=== PATIENT | female | born 1940 | race Caucasian/White ===

== ENCOUNTER 2017-11-24 19:57 | Observation (INO) | payer MEDICARE, BC ==
[2017-11-24] MEDS ORDERED: Sodium Chloride 0.9% 5 ML Syringe FLUSH PRN ×2 (20:05→21:24)
[2017-11-24] MEDS ORDERED: Nitroglycerin 2% Oint 1 GM UD Packet TOP ONE (20:06)
--- NOTE | 2017-11-24 20:19 | EDM.PDOC ---
ED HPI GENERAL MEDICAL PROBLEM - General Chief Complaint: Chest Pain Stated Complaint: CHEST PAIN Time Seen by Provider: 11/24/17 20:05 Source of Information: Reports: Patient History Limitations: Reports: No Limitations - History of Present Illness INITIAL COMMENTS - FREE TEXT/NARRATIVE: 77 YO WF presents to ER by EMS with conplaints of near syncope. Pt reports she was eating dinner and after she finished she began to feel nauseated with intestinal cramping, diaphoresis, and dizziness. Pt reports she had a similar event 4 years ago and had stents placed in her heart. Pt reports no chest pain during this episode but did have some mild left shoulder discomfort. Pt reports symptoms inproved after nitro and oxygen by EMS. Onset: Today Onset Date: 11/24/17 Onset Time: 18:00 Duration: Hour(s): (2) Location: Reports: Chest, Abdomen Quality: Reports: Ache Severity: Moderate Improves with: Reports: None Worsens with: Reports: Eating Associated Symptoms: Reports: Chest Pain, Diaphoresis, Nausea/Vomiting. Denies : Shortness of Breath Treatments STATION EXAMINER: Reports: Nitroglycerin Left Chest Pain Score (Numeric/FACES): 3 - Related Data Allergies Allergy/AdvReac Type Severity Reaction Status Date / Time amlodipine Allergy Hives Verified 11/24/17 20:55 aspirin Allergy Bleeding Verified 11/24/17 20:55 atorvastatin Allergy Muscle Verified 11/24/17 20:55 Aches fexofenadine [From Marija] Allergy Hives Verified 11/24/17 20:55 latex Allergy Hives Verified 11/24/17 20:55 phenobarbital Allergy Hives Verified 11/24/17 20:55 povidone-iodine Allergy Hives Verified 11/24/17 20:55 [From Betadine] rosuvastatin Allergy Rash Verified 11/24/17 20:55 soap [From Betadine] Allergy Hives Verified 11/24/17 20:55 valsartan [From Diovan] Allergy Hives Verified 11/24/17 20:55 venlafaxine [From Effexor] Allergy Rash Verified 11/24/17 20:55 Home Meds: Home Meds Bisacodyl [Dulcolax] 5 mg PO ASDIRECTED PRN 11/24/17 [History] Furosemide [Lasix] 20 mg PO DAILY 11/24/17 [History] Hydrochlorothiazide 25 mg PO DAILY 11/24/17 [History] Isosorbide Mononitrate [Imdur] 30 mg PO DAILY 11/24/17 [History] Losartan [Cozaar] 100 mg PO DAILY 11/24/17 [History] Nitroglycerin [Nitrostat] 1 tab SL ASDIRECTED PRN 11/24/17 [History] Pravastatin Sodium [Pravachol] 10 mg PO DAILY 11/24/17 [History] Psyllium Husk [Metamucil] 1 tbsp PO DAILY PRN 11/24/17 [History] Sertraline [Zoloft] 50 mg PO DAILY 11/24/17 [History] ED ROS GENERAL - Review of Systems Review Of Systems: See Below Constitutional: Reports: No Symptoms HEENT: Reports: No Symptoms Respiratory: Reports: No Symptoms Cardiovascular: Reports: Chest Pain, Lightheadedness Endocrine: Reports: No Symptoms GI/Abdominal: Reports: Nausea : Reports: No Symptoms Musculoskeletal: Reports: No Symptoms Skin: Reports: No Symptoms Neurological: Reports: No Symptoms Psychiatric: Reports: No Symptoms Hematologic/Lymphatic: Reports: No Symptoms Immunologic: Reports: No Symptoms ED EXAM, GENERAL - Physical Exam Exam: See Below Exam Limited By: No Limitations General Appearance: Alert, WD/WN, No Apparent Distress Ears: Normal External Exam, Normal Canal, Hearing Grossly Normal, Normal TMs Head: Atraumatic, Normocephalic Neck: Normal Inspection, Supple, Non-Tender, Full Range of Motion Respiratory/Chest: No Respiratory Distress, Lungs Clear, Normal Breath Sounds, No Accessory Muscle Use, Chest Non-Tender Cardiovascular: Normal Peripheral Pulses, Regular Rate, Rhythm, No Edema, No Gallop, No JVD, No Murmur, No Rub GI/Abdominal: Normal Bowel Sounds, Soft, Non-Tender, No Organomegaly, No Distention, No Abnormal Bruit, No Mass Back Exam: Normal Inspection, Full Range of Motion, NT Extremities: Normal Inspection, Normal Range of Motion, Non-Tender, Normal Capillary Refill, No Pedal Edema Neurological: Alert, Oriented, CN II-XII Intact, Normal Cognition, Normal Gait, Normal Reflexes, No Motor/Sensory Deficits Psychiatric: Normal Affect, Normal Mood Skin Exam: Warm, Dry, Intact, Normal Color, No Rash Lymphatic: No Adenopathy EKG INTERPRETATION EKG Date: 04/25/18 Time: 20:08 Rhythm: NSR Rate (Beats/Min): 100 [place]: Normal P-Wave: Present QRS: Normal ST-T: Normal QT: Normal Comparison: NA - No Prior EKG Course - Vital Signs Last Recorded V/S: Last Vital Signs Temp 36.8 C 11/24/17 20:13 Pulse 97 11/24/17 20:13 Resp 18 11/24/17 20:13 BP 170/74 H 11/24/17 20:13 Pulse Ox 86 L 11/24/17 20:13 - Orders/Labs/Meds Orders: Active Orders 24 hr Category Date Time Status EKG Documentation Completion [RC] ASDIRECTED Care 11/24/17 20:05 Active Peripheral IV Care [RC] . DIRECTED Care 11/24/17 20:05 Active Chest 1V Frontal [CR] Stat Exams 11/24/17 20:05 Ordered Sodium Chloride 0.9% [Syrex Flush] Med 11/24/17 20:05 Active 5 ml FLUSH Q8HR PRN Peripheral IV Insertion Adult [OM.PC] Routine Oth 11/24/17 20:05 Ordered EKG 12 Lead [EK] Routine Ther 11/24/17 20:05 Ordered Medication Orders Sodium Chloride (Syrex Flush) 5 ml FLUSH Q8HR PRN PRN Reason: Keep Vein Open Labs: Laboratory Tests 11/24/17 11/24/17 11/24/17 Range/Units 19:45 19:45 19:45 WBC 7.8 (5.0-10.0) 10^3/uL RBC 5.00 (3.80-5.50) 10^6/uL Hgb 14.9 (12.0-16.0) g/dL Hct 44.1 (37.0-47.0) % MCV 88.3 (82.0-92.0) fL MCH 29.8 (27.0-31.0) pg MCHC 33.8 (32.0-36.0) g/dL RDW 12.4 (11.5-14.5) % Plt Count 180 (150-300) 10^3/uL MPV 8.6 (7.4-10.4) fL Neut % (Auto) 64.9 (50.0-70.0) % Lymph % (Auto) 21.7 (20.0-40.0) % [place] % (Auto) 9.4 H (2.0-8.0) % Eos % (Auto) 3.3 H (1.0-3.0) % Baso % (Auto) 0.7 (0.0-1.0) % Neut # (Auto) 5.0 (2.5-7.0) 10^3/uL Lymph # (Auto) 1.7 (1.0-4.0) 10^3/uL [place] # (Auto) 0.7 (0.1-0.8) 10^3/uL Eos # (Auto) 0.3 (0.1-0.3) 10^3/uL Baso # (Auto) 0.1 (0.0-0.1) 10^3/uL PT 10.0 (8.9-11.4) SEC INR 1.0 (0.9-1.1) APTT 24.3 (20.8-31.2) SEC Sodium 140 (136-145) mmol/L Potassium 2.9 L (3.3-5.3) mmol/L Chloride 101 (98-115) mmol/L Carbon Dioxide 24.2 (21.0-32.0) mmol/L BUN 35 H (6-25) mg/dL Creatinine 1.17 (0.51-1.17) mg/dL Est Cr Clr Drug Dosing 33.67 mL/min Estimated GFR (MDRD) 45 mL/min Glucose 130 H (70-110) mg/dL Calcium 9.2 (8.7-10.3) mg/dL Total Bilirubin 0.7 (0.2-1.0) mg/dL AST 25 (15-37) U/L ALT 25 (12-78) U/L Alkaline Phosphatase 49 (46-116) IU/L Creatine Kinase 91 (26-276) U/L CK-MB (CK-2) 0.50 (0.00-4.30) ng/mL Troponin I < 0.04 (0.00-0.070) ng/mL Total Protein 8.4 H (6.4-8.2) g/dL Albumin 4.19 (3.00-4.80) g/dL Meds: Medications Generic Name Dose Route Start Last Admin Trade Name Freq PRN Reason Stop Dose Admin Sodium Chloride 5 ml 04/25/18 20:05 Syrex Flush FLUSH Q8HR PRN Keep Vein Open Discontinued Medications Generic Name Dose Route Start Last Admin Trade Name Libia PRN Reason Stop Dose Admin Nitroglycerin 1 gm 11/24/17 20:06 11/24/17 20:20 Nitro-Bid 2% TOP 11/24/17 20:07 1 gm ONETIME ONE Administration - Radiology Interpretation Free Text/Narrative:: CXR- NAD Departure - Departure Time of Disposition: 21:18 Disposition: Refer to Observation Condition: Fair Clinical Impression: Near syncope, Hypokalemia Chest pain Qualifiers: Chest pain type: unspecified Qualified Code(s): R07.9 - Chest pain, unspecified Forms: ED Department Discharge - My Orders Last 24 Hours: My Active Orders 11/24/17 20:05 EKG Documentation Completion [RC] ASDIRECTED Peripheral IV Care [RC] . DIRECTED Chest 1V Frontal [CR] Stat Sodium Chloride 0.9% [Syrex Flush] 5 ml FLUSH Q8HR PRN Peripheral IV Insertion Adult [OM.PC] Routine EKG 12 Lead [EK] Routine - Assessment/Plan Last 24 Hours: My Active Orders 11/24/17 20:05 EKG Documentation Completion [RC] ASDIRECTED Peripheral IV Care [RC] . DIRECTED Chest 1V Frontal [CR] Stat Sodium Chloride 0.9% [Syrex Flush] 5 ml FLUSH Q8HR PRN Peripheral IV Insertion Adult [OM.PC] Routine EKG 12 Lead [EK] Routine Assessment:: 1. near syncope 2. anginal equivalent chest pain 3. hypokalemia Plan: 1. admit for 23 hour obs- Hardik Mcgraw 2. nitro 0.4 paste Q6 3. repeat trop I 4. replace potassium
[2017-11-24 20:40] LABS: CHLORIDE,CL 101 mmol/L (98-115); SODIUM,NA 140 mmol/L (136-145)
[2017-11-24] MEDS ORDERED: Morphine 2 MG/ML Syringe IVPUSH PRN (21:24)
[2017-11-24] MEDS ORDERED: Potassium Chloride 20 MEQ Tab.ER PO ONE (21:28)
[2017-11-25] MEDS: Nitroglycerin 2% Oint 1 GM UD Packet TOP SCH ×3 (00:38→11:46)
[2017-11-25 07:46] LABS: CHLORIDE,CL 105 mmol/L (98-115); SODIUM,NA 149 mmol/L (136-145)
--- NOTE | 2017-11-25 09:41 | PCM.HP ---
H&P History of Present Illness - General Date of Service: 11/25/17 Admit Problem/Dx: Admission Diagnosis/Problem Admission Diagnosis/Problem Near syncope - History of Present Illness Initial Comments - Free Text/Narative: 77-year-old elderly female who was in her normal state of health when she presented to the ED due to lightheadedness and feeling she was given a pass out however no classic chest pain but did admit to left shoulder pain. Patient stated she was at local [facility] visiting friend ate a meal and then started having chest pain with some significant nausea cramping diaphoresis. Stated she had diaphoresis 2 nights prior to this also. She does have a history of stents placed 4 years ago with a myocardial infarction 2000. Was given nitroglycerin and oxygen, enroute to ED with significant improvement. History of bleeding with aspirin. Left Chest Pain Score (Numeric/FACES): 3 - Related Data Allergies/Adverse Reactions: Allergies Allergy/AdvReac Type Severity Reaction Status Date / Time amlodipine Allergy Hives Verified 11/25/17 00:39 aspirin Allergy Bleeding Verified 11/25/17 00:39 atorvastatin Allergy Muscle Verified 11/25/17 00:39 Aches fexofenadine [From Marija] Allergy Hives Verified 11/25/17 00:39 latex Allergy Hives Verified 11/25/17 00:39 phenobarbital Allergy Hives Verified 11/25/17 00:39 povidone-iodine Allergy Hives Verified 11/25/17 00:39 [From Betadine] rosuvastatin Allergy Rash Verified 11/25/17 00:39 soap [From Betadine] Allergy Hives Verified 11/25/17 00:39 valsartan [From Diovan] Allergy Hives Verified 11/25/17 00:39 venlafaxine [From Effexor] Allergy Rash Verified 11/25/17 00:39 Home Medications: Home Meds Bisacodyl [Dulcolax] 5 mg PO ASDIRECTED PRN 11/24/17 [History] Furosemide [Lasix] 20 mg PO DAILY 11/24/17 [History] Hydrochlorothiazide 25 mg PO DAILY 11/24/17 [History] Isosorbide Mononitrate [Imdur] 30 mg PO DAILY 11/24/17 [History] Losartan [Cozaar] 100 mg PO DAILY 11/24/17 [History] Nitroglycerin [Nitrostat] 1 tab SL ASDIRECTED PRN 11/24/17 [History] Pravastatin Sodium [Pravachol] 10 mg PO DAILY 11/24/17 [History] Psyllium Husk [Metamucil] 1 tbsp PO DAILY PRN 11/24/17 [History] Sertraline [Zoloft] 50 mg PO DAILY 11/24/17 [History] Potassium Chloride [K-Tab] 10 meq PO DAILY #30 tablet.er 11/26/17 [Rx] Past Medical History HEENT History: Reports: Impaired Vision, Other (See Below) Other HEENT History: dentures Cardiovascular History: Reports: CAD, High Cholesterol, Hypertension, NH, Stents Gastrointestinal History: Reports: GI Bleed Genitourinary History: Reports: Other (See Below) Other Genitourinary History: CKD Stage III 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: Musculoskeletal History: Reports: Arthritis Psychiatric History: Reports: Anxiety - Infectious Disease History Infectious Disease History: Reports: Chicken Pox, Measles - Past Surgical History HEENT Surgical History: Reports: Cataract Surgery GI Surgical History: Reports: Appendectomy, Colonoscopy, EGD Female Surgical History: Reports: Hysterectomy, Salpingo-Oophorectomy, Other (See Below) Other Female Surgeries/Procedures: Bladder suspension Musculoskeletal Surgical History: Reports: None Social & Family History - Family History HEENT: Reports: None Cardiac: Reports: Heart Failure, Hypertension (Mother with heart failure, coronary artery disease and hypertension Father coronary artery disease Sr. alive hypertension Brother alive coronary artery disease, stroke, hypertension Daughter alive coronary artery disease hypertension hyperlipidemia) Respiratory: Reports: None GI: Reports: None : Reports: None OBGYN: Reports: None Musculoskeletal: Reports: None Neurological: Reports: None Psychiatric: Reports: None Endocrine/Metabolic: Reports: None Hematologic: Reports: None Immunologic: Reports: None Dermatologic: Reports: None Oncologic: Reports: Colon (Sister pancreatic cancer, remaining sister and brother with Sr. colorectal cancer), Leukemia, Pancreatic - Tobacco Use Smoking Status *Q: Never Smoker Second Hand Smoke Exposure: No - Caffeine Use Caffeine Use: Reports: None - Recreational Drug Use Recreational Drug Use: No H&P Review of Systems - Review of Systems: Review Of Systems: See Below General: Reports: Fever (felt feverish yesterday. ), Diaphoresis, Decreased Appetite. Denies: Night Sweats (admitted to having night sweats 2 days prior to this, improved on her "stress pill) HEENT: Reports: No Symptoms Pulmonary: Reports: No Symptoms. Denies: Shortness of Breath (gets sob upon taking any steps or walking her dog. ) Cardiovascular: Reports: Dyspnea on Exertion, Orthopnea, PND. Denies: Chest Pain, Edema, Lightheadedness Gastrointestinal: Reports: Constipation (chronic) Genitourinary: Reports: No Symptoms Musculoskeletal: Reports: Neck Pain (No neck pain now but this past week. ) Skin: Reports: No Symptoms Psychiatric: Reports: No Symptoms Neurological: Reports: No Symptoms Hematologic/Lymphatic: Reports: Anemia, Easy Bleeding Immunologic: Reports: No Symptoms, Seasonal Allergy Exam - Exam Exam: See Below - Vital Signs Vital Signs: Last Vital Signs Temp 99.0 F 11/25/17 06:35 Pulse 68 11/25/17 06:35 Resp 18 11/25/17 06:35 BP 123/71 11/25/17 06:35 Pulse Ox 96 11/25/17 06:35 Weight: 140 lb 3 oz - Exam Quality Assessment: No: Supplemental Oxygen General: Alert, Oriented, 4 HEENT: PERRLA, Hearing Intact, Mucosa Moist & Sh[place], Nares Patent, Normal Nasal Septum, Posterior Pharynx Clear, Conjunctiva Clear, EOMI, EACs Clear, TMs Clear Neck: Supple, Trachea Midline, 2 Lungs: Clear to Auscultation, Normal Respiratory Effort Cardiovascular: Regular Rate, Regular Rhythm GI/Abdominal Exam: Normal Bowel Sounds, Soft, Non-Tender, No Organomegaly, No Distention, No Abnormal Bruit, No Mass, Pelvis Stable Back Exam: No: CVA Tenderness (L), CVA Tenderness (R) Extremities: Normal Range of Motion, No Pedal Edema Peripheral Pulses: 2+: Radial (L), Radial (R) Skin: Warm, Dry, Intact Neurological: Cranial Nerves Intact, Reflexes Equal Bilateral Neuro Extensive - Mental Status: Alert, Oriented x3, Normal Mood/Affect, Normal Cognition Neuro Extensive - Motor, Sensory, Reflexes: CN II-XII Intact, Normal Gait, Normal Reflexes Psychiatric: Alert, Normal Affect, Normal Mood - Patient Data Lab Results Last 24 hrs: Laboratory Results - last 24 hr 11/24/17 11/24/17 11/24/17 Range/Units 19:45 19:45 19:45 WBC 7.8 (5.0-10.0) 10^3/uL RBC 5.00 (3.80-5.50) 10^6/uL Hgb 14.9 (12.0-16.0) g/dL Hct 44.1 (37.0-47.0) % MCV 88.3 (82.0-92.0) fL MCH 29.8 (27.0-31.0) pg MCHC 33.8 (32.0-36.0) g/dL RDW 12.4 (11.5-14.5) % Plt Count 180 (150-300) 10^3/uL MPV 8.6 (7.4-10.4) fL Neut % (Auto) 64.9 (50.0-70.0) % Lymph % (Auto) 21.7 (20.0-40.0) % [place] % (Auto) 9.4 H (2.0-8.0) % Eos % (Auto) 3.3 H (1.0-3.0) % Baso % (Auto) 0.7 (0.0-1.0) % Neut # (Auto) 5.0 (2.5-7.0) 10^3/uL Lymph # (Auto) 1.7 (1.0-4.0) 10^3/uL [place] # (Auto) 0.7 (0.1-0.8) 10^3/uL Eos # (Auto) 0.3 (0.1-0.3) 10^3/uL Baso # (Auto) 0.1 (0.0-0.1) 10^3/uL PT 10.0 (8.9-11.4) SEC INR 1.0 (0.9-1.1) APTT 24.3 (20.8-31.2) SEC Sodium 140 (136-145) mmol/L Potassium 2.9 L (3.3-5.3) mmol/L Chloride 101 (98-115) mmol/L Carbon Dioxide 24.2 (21.0-32.0) mmol/L BUN 35 H (6-25) mg/dL Creatinine 1.17 (0.51-1.17) mg/dL Est Cr Clr Drug Dosing 33.67 mL/min Estimated GFR (MDRD) 45 mL/min Glucose 130 H (70-110) mg/dL Calcium 9.2 (8.7-10.3) mg/dL Magnesium (1.8-2.4) mg/dL Total Bilirubin 0.7 (0.2-1.0) mg/dL AST 25 (15-37) U/L ALT 25 (12-78) U/L Alkaline Phosphatase 49 (46-116) IU/L Creatine Kinase 91 (26-276) U/L CK-MB (CK-2) 0.50 (0.00-4.30) ng/mL Troponin I < 0.04 (0.00-0.070) ng/mL Total Protein 8.4 H (6.4-8.2) g/dL Albumin 4.19 (3.00-4.80) g/dL 11/25/17 11/25/17 11/25/17 Range/Units 02:38 07:10 07:10 WBC 6.1 (5.0-10.0) 10^3/uL RBC 4.22 (3.80-5.50) 10^6/uL Hgb 12.6 D (12.0-16.0) g/dL Hct 37.5 (37.0-47.0) % MCV 89.0 (82.0-92.0) fL MCH 29.9 (27.0-31.0) pg MCHC 33.6 (32.0-36.0) g/dL RDW 12.4 (11.5-14.5) % Plt Count 146 L (150-300) 10^3/uL MPV 8.0 (7.4-10.4) fL Neut % (Auto) 59.8 (50.0-70.0) % Lymph % (Auto) 22.6 (20.0-40.0) % [place] % (Auto) 11.0 H (2.0-8.0) % Eos % (Auto) 4.9 H (1.0-3.0) % Baso % (Auto) 1.7 H (0.0-1.0) % Neut # (Auto) 3.6 (2.5-7.0) 10^3/uL Lymph # (Auto) 1.4 (1.0-4.0) 10^3/uL [place] # (Auto) 0.7 (0.1-0.8) 10^3/uL Eos # (Auto) 0.3 (0.1-0.3) 10^3/uL Baso # (Auto) 0.1 (0.0-0.1) 10^3/uL PT (8.9-11.4) SEC INR (0.9-1.1) APTT (20.8-31.2) SEC Sodium 149 H (136-145) mmol/L Potassium 3.8 (3.3-5.3) mmol/L Chloride 105 (98-115) mmol/L Carbon Dioxide 30.5 (21.0-32.0) mmol/L BUN 30 H (6-25) mg/dL Creatinine 1.05 (0.51-1.17) mg/dL Est Cr Clr Drug Dosing 37.52 mL/min Estimated GFR (MDRD) 51 mL/min Glucose 106 (70-110) mg/dL Calcium 8.5 L (8.7-10.3) mg/dL Magnesium 2.2 (1.8-2.4) mg/dL Total Bilirubin (0.2-1.0) mg/dL AST (15-37) U/L ALT (12-78) U/L Alkaline Phosphatase (46-116) IU/L Creatine Kinase (26-276) U/L CK-MB (CK-2) (0.00-4.30) ng/mL Troponin I < 0.04 < 0.04 (0.00-0.070) ng/mL Total Protein (6.4-8.2) g/dL Albumin (3.00-4.80) g/dL Result Diagrams: 11/25/17 07:10 11/25/17 07:10 EKG INTERPRETATION Comparison: NA - No Prior EKG Problem List Initiated/Reviewed/Updated: Yes Orders Last 24hrs: Active Orders 24 hr Category Date Time Status Patient Status [ADT] Routine ADT 11/24/17 21:24 Ordered Bedrest Bathroom Privileges [RC] ASDIRECTED Care 11/24/17 21:24 Active EKG Documentation Completion [RC] ASDIRECTED Care 11/24/17 20:05 Inactive Oxygen Therapy [RC] PRN Care 11/24/17 21:24 Active Vital Signs [RC] 0300,0700,1100,1500,1900,2300 Care 11/24/17 21:24 Active 2 Gram Sodium Diet [DIET] Diet 11/25/17 Breakfast Active Morphine Med 11/24/17 21:24 Active 2 mg IVPUSH Q2H PRN Nitroglycerin [Nitro-Bid 2%] Med 11/24/17 21:30 Active 1 gm TOP Q6H Sodium Chloride 0.9% [Syrex Flush] Med 11/24/17 21:24 Active 5 ml FLUSH Q8HR PRN Peripheral IV Insertion Adult [OM.PC] Routine Oth 11/24/17 21:24 Ordered Resuscitation Status Routine Resus Stat 11/24/17 21:24 Ordered Medication Orders Morphine Sulfate (Morphine) 2 mg IVPUSH Q2H PRN PRN Reason: Pain (severe 7-10) Nitroglycerin (Nitro-Bid 2%) 1 gm TOP Q6H RU Last Admin: 11/25/17 02:54 Dose: 1 gm Admin: 11/25/17 00:38 Dose: Not Given Sodium Chloride (Syrex Flush) 5 ml FLUSH Q8HR PRN PRN Reason: Keep Vein Open Assessment/Plan Comment:: HISTORY OF PRESENT ILLNESS 77-year-old elderly female who was in her normal state of health when she presented to the ED due to lightheadedness and feeling she was given a pass out however no classic chest pain but did admit to left shoulder pain. Patient stated she was at local [facility] visiting friend ate a meal and then started having chest pain with some significant nausea cramping diaphoresis. Stated she had diaphoresis 2 nights prior to this also. She does have a history of stents placed 4 years ago with a myocardial infarction 2000. Was given nitroglycerin and oxygen, enroute to ED with significant improvement. History of bleeding with aspirin. Pertinent ED findings EKG, no STEMI however ST abnormality possible dig effect Negative troponin Hypokalemia Negative chest x-ray Update this morning on rounds, patient much improved, nitroglycerin seems to be helping patient. VSS, troponins normal. No chest pain, no shortness of breath or anginal pain now. Primary problems Angina, stable. History NH 2000, stent placed Hypokalemia, now normalized Overall plan, We'll continue monitoring her on telemetry status today, continue with Imdur, remove Nitropaste, she'll be set up for cardiology appointment.
[2017-11-25] MEDS ORDERED: Atropine 0.1 MG/ML 10 ML Syringe IVPUSH PRN (10:36)
[2017-11-25] MEDS ORDERED: Lidocaine 2% 100 MG/5 ML Syringe IVPUSH PRN (10:36)
[2017-11-25] MEDS ORDERED: EPINEPHrine 1:10,000 1 MG/10 ML Syringe IVPUSH PRN (10:36)
[2017-11-25] MEDS ORDERED: Nitroglycerin 0.4 MG Tab.SL SL PRN (10:37)
[2017-11-25] MEDS: **PTOM** Isosorbide Mononitrate 30 MG Tab.ER PO SCH (14:27)
[2017-11-26] MEDS: **PTOM** Isosorbide Mononitrate 30 MG Tab.ER PO SCH (08:04)
[2017-11-26] MEDS ORDERED: Psyllium Husk Powder Sugar Free 5.85 GM Packet PO PRN (09:14)
[2017-11-26] MEDS ORDERED: Bisacodyl 5 MG Tab PO PRN (09:14)
[2017-11-26] MEDS ORDERED: Nitroglycerin 0.4 MG Tab.SL SL PRN (09:14)
[2017-11-26] MEDS ORDERED: **PTOM** Furosemide 20 MG Tab PO SCH (10:30)
[2017-11-26] MEDS ORDERED: HYDROCHLOROTHIAZIDE 25 MG PO SCH (10:30)
[2017-11-27] MEDS ORDERED: Losartan 50 MG Tab PO SCH (09:00)
[2017-11-27] MEDS ORDERED: Isosorbide Mononitrate 30 MG Tab.ER PO SCH (09:00)
[2017-11-27] MEDS ORDERED: Pravastatin 20 MG Tab PO SCH (09:00)
--- NOTE | 2017-11-29 08:26 | DISCH ---
She was admitted in observation on 11/24/2017. Discharged from observation on 11/26/2017. FINAL DIAGNOSES: Near syncope episode, rule out angina, rule out myocardial infarction; this has been ruled out. HISTORY: This 77-year-old female was in her normal state of health when she presented to the ED due to lightheadedness and feeling that she was going to pass out. However, she did not really have classic chest wall pain. However, she did admit to some pain in her left shoulder area. She was at a custodial visiting a friend. She ate a meal and started having pain in her left chest with some significant nausea, cramping, diaphoresis, felt like she was going to pass out, some slight dizziness, extreme pallor in her face according to her friends. She also admitted to some diaphoresis in the middle of the night prior to this. She does have a history of a myocardial infarction in 2000. She does have a history of stents approximately 4 years ago. She was given nitroglycerin, oxygen via EMS en route to the emergency room, and when she said she had significant amount of relief with that left shoulder pain and just overall improvement with her symptoms. She has a history of bleeding when she takes aspirin. PERTINENT EMERGENCY DEPARTMENT FINDINGS: EKG showed non-STEMI. However, ST abnormality with possible digitalis effect, non-STEMI. No ST elevation. She had negative troponin. She did have some mild hypokalemia. However, she also had a negative chest x-ray. HOSPITAL COURSE: Hospital course went well. She had no other signs or symptoms of angina or diaphoresis. The patient does have a significant hiatal hernia, that she seems to manage well. However, this was not a classic GI-related pain, which she usually has her hiatal hernia acting up. She never became hemodynamically unstable. She had good vital signs. She was given a nitroglycerin patch. We kept her on her Imdur. Troponins were negative x3. She did have some mild sodium elevation at 149; potassium was 2.9 on admission, on discharge it was 3.8 after some easy correction. BUN 30, creatinine 1.05. Liver functions were normal. Alkaline phosphatase is normal. Albumin 4.19. PHYSICAL EXAMINATION: VITAL SIGNS AND OTHER EXAMINATIONS ON DISCHARGE: Temperature 98.1, blood pressure 122/70, heart rate 65 and regular, respiratory rate 16, O2 sats 92% to 96% on room air. LUNGS: Clear to auscultation. CV: Regular rate and rhythm. GI: Good bowel tones. EXTREMITIES: No edema in her extremities. MICROBIOLOGY: No microbiology was required. DIAGNOSTICS: Chest x-ray showed no acute process. She had no aberrancy or telemetry ectopy. MEDICATIONS UPON DISCHARGE: No changes in home medications other than added potassium 10 mEq p.o. daily. She is to continue on all her other home medications including Imdur. DISPOSITION: The patient will be discharged from observation to home self-care. Cardiology appointment has been placed in [facility]. She will follow up with her primary care provider in [place], Dr. Mccord, this one week from today. She is to report any further syncope or chest pain immediately, small but frequent meals. /[id number]/MODL
--- NOTE | 2017-11-29 08:26 | DISCH ---
ADDENDUM: This is a [id number] encounter for home health services for nursing care for home health teaching for medication management as the patient is confused on the sizes and shapes of her medications. Also to establish in-home safety assessment and instructions due to limited decrease strength and endurance due to recent chest pains and dizziness. /[id number]/MODL
== END 2017-11-26 11:20 | disposition home or self-care (01) ==
LOC: KA.ED 19:57 → MERGE 22:00 → UNDOADMOB 22:00 → KA.MS 22:00
PROVIDERS: ADMIT Physician Assistant; ATTEND Family Medicine
DX: R55 Syncope and collapse (principal); E87.6 Hypokalemia; I25.10 Atherosclerotic heart disease of native coronary artery without angina pectoris; E78.00 Pure hypercholesterolemia, unspecified; I12.9 Hypertensive chronic kidney disease with stage 1 through stage 4 chronic kidney disease, or unspecified chronic kidney disease; N18.3 Chronic kidney disease, stage 3 (moderate); M19.90 Unspecified osteoarthritis, unspecified site; F41.9 Anxiety disorder, unspecified; Z90.49 Acquired absence of other specified parts of digestive tract; I25.2 Old myocardial infarction; Z98.890 Other specified postprocedural states; Z95.5 Presence of coronary angioplasty implant and graft; Z88.8 Allergy status to other drugs, medicaments and biological substances; Z88.6 Allergy status to analgesic agent; Z91.040 Latex allergy status; Z91.09 Other allergy status, other than to drugs and biological substances; Z79.899 Other long term (current) drug therapy
CPT/HCPCS: 36415; 71045; 71046; 80048; 80053; 82550; 82553; 83735; 84484; 85025; 85610; 85730; 93005; 99284; 99285; A9270-GY; G0378